=== PATIENT | male | born 1995 | race Caucasian/White ===

== ENCOUNTER 2019-10-04 11:52 | Emergency (ER) | payer MEDICAID ==
[~2019-10-04] VITALS: Ht 175.3 cm; Wt 68.0 kg
--- NOTE | 2019-10-04 12:08 | NUR ---
Patient to ER bed 4 to gown for evaluation. Side rails up.
[2019-10-04 12:10] VITALS: BP_SYST 141
--- NOTE | 2019-10-04 12:15 | NUR ---
pt arrives from home. Pt states that fell at home last night around 2200. Pt did not lose consiousness. Does not report BURGOS. Pt states he feels dizzy and has a BURGOS 8/10.
--- NOTE | 2019-10-04 12:20 | NUR ---
LAURYN Arboleda at bedside examining patient.
--- NOTE | 2019-10-04 12:58 | NUR ---
Patient given written and verbal discharge instructions and verbalizes understanding. ER MD discussed with patient the results and treatment provided. Patient in stable condition. ID arm band removed. Rx of Ibuprofen given. Patient educated on pain management and to follow up with PMD. Pain Scale 3/10. Opportunity for questions provided and answered. Medication side effect fact sheet provided.
--- NOTE | 2019-10-04 13:10 | NUR ---
pt left w/out having CT scan done. Dr. Thapa made aware
[2019-10-04 13:30] VITALS: BP_SYST 141
== END 2019-10-04 13:10 | disposition home or self-care (01) ==
LOC: SED 11:52
DX: S09.90XA Unspecified injury of head, initial encounter (principal); H61.23 Impacted cerumen, bilateral; W18.39XA Other fall on same level, initial encounter; Y93.89 Activity, other specified; Y92.89 Other specified places as the place of occurrence of the external cause; Y99.8 Other external cause status
CPT/HCPCS: 99282